=== PATIENT | male | born 1970 | race Caucasian/White ===

== ENCOUNTER 2020-06-13 06:35 | Day surgery (SDC) | payer MEDICAID ==
[2020-06-13] MEDS ORDERED: Sodium Chloride 0.9% 1,000 ML IV SCH (07:15)
[2020-06-13] MEDS ORDERED: Propofol 200 MG/20 ML SDV ONE (07:17)
[2020-06-13] MEDS ORDERED: fentaNYL 100 MCG/2 ML SDV ONE (07:17)
[2020-06-13] MEDS ORDERED: Midazolam 1 MG/ML 2 ML SDV ONE (07:17)
--- NOTE | 2020-06-13 15:48 | OR ---
DATE OF PROCEDURE: 06/13/2020 SURGEON: Oren Atkins MD PROCEDURE: Colonoscopy. FINDINGS: 1. Small area of inflammation versus inflammatory polyp of the cecum (biopsied using cold biopsy forceps). 2. No other gross abnormalities. COMPLICATIONS: None. 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 ANESTHESIA: MAC. PREOPERATIVE DIAGNOSIS: Screening colonoscopy. POSTOPERATIVE DIAGNOSIS: Screening colonoscopy. RISKS: Risks, benefits, alternatives, and limitations including, but not limited to infection, bleeding, perforation, false positives, and false negatives were explained to the patient who wished to proceed. PROCEDURE IN DETAIL: The patient was placed in left lateral decubitus position. Digital rectal exam was performed without abnormality. The scope was introduced and advanced atraumatically to ileocecal valve. A photo was taken. The scope was brought back to the ascending, transverse, descending colon, and retroflexed. No evidence of old or new blood within the cecum itself. There was a small pedunculated area in the cecum, benign in appearance. This was biopsied multiple times using cold biopsy forceps. As the scope was brought back to the colon, no abnormalities were noted. No colitis. No old or new blood. No masses. No colitis. No abnormalities on retroflexion. Greater than 8 minutes was spent removing the scope. The prep was acceptable. Approximately 90% of the luminal surface could be seen, although there was some solid and liquid stool remaining and suction irrigation techniques were used to remove as much as possible. The patient tolerated the procedure well. Oren Atkins MD /[id number]
== END 2020-06-13 10:34 | disposition home or self-care (01) ==
LOC: JP.SDS 06:35
PROVIDERS: ATTEND Surgery
DX: Z12.11 Encounter for screening for malignant neoplasm of colon (principal); D12.0 Benign neoplasm of cecum; I10 Essential (primary) hypertension; E78.5 Hyperlipidemia, unspecified
CPT/HCPCS: 45380; 88305; J2250; J2704; J3010; J7030